=== PATIENT | female | born 1975 | race Caucasian/White ===

== ENCOUNTER 2020-06-24 14:32 | Outpatient (REF) | payer MEDICAID, SELFPAY ==
--- NOTE | ~2020-06-24 | FL_ITS ---
EXAMINATION: XR BARIUM SWALLOW CLINICAL INFORMATION: Other signs and symptoms concerning food and fluid intake COMPARISON: None TECHNIQUE: Fluoroscopic guidance was provided for modified barium swallow performed by the speech and hearing department. The patient received liquid barium and various food media mixed with barium. FINDINGS: No aspiration or penetration is seen with any media. FLUOROSCOPY TIME: 1 minute DOSE AREA PRODUCT: 0.8 Nelson per centimeter squared. Total dose 2.8 mgy FL/FL barium swallow modified IMPRESSION: Unremarkable examination.
--- NOTE | 2020-06-25 11:31 | MHC.SL.IMP ---
Name: Sendy Velasquez Date of : 1975 Age: 45 Date of Registration: 06/24/20 Date of Plan of Treatment: 06/24/20 Onset of Symptoms/Illness: 04/23/19 Date Treatment Started: 06/24/20 Admitting Diagnosis: Fibromyalgia Primary Speech & Language Diagnosis: R13.12 Oropharyngeal Phase Dysphagia Reason for Today's Visit: 87111 Modified Barium Swallow Study Pre-evaluation Dietary Consistencies: Regular Pre-evaluation Liquid Consistency: Thin Pre-evaluation Medication Administration: Whole with Liquid Medical History: Reason for Study: Oropharyngeal Dysphagia Referring Physician: Scott Anderson M.D. Evaluating Clinician: Monica Noriega M.A. [facility] Study Number: 1 Patient Name: Sendy Velasquez Status: Outpatient, Ambulatory Age: 45 Gender: Female MEDICAL HISTORY: Primary (admitting) Diagnosis: Fibromyalgia Year of Onset or Diagnosis: 2019 Past Medical History: Depression Spasms Current (pre-evaluation) Intake/Diet: Route: PO Diet Grade: Regular Liquid Consistencies: Thin Pre-Study Functional Oral Intake Scale (FOIS): 7- Total oral intake with no restrictions Pain: None reported at time of study Oral Motor Exam Facial Symmetry: Normal for Patient Oral-Facial Facial Miscellaneous Observations: Very slight right droop. Patient reports tightness on right side of face. Mouth Occlusion: Normal Oral-Facial Teeth Characteristics: Intact/Normal Oral-Facial Teeth Miscellaneous Observation: Top and bottom natural dentition in good condition. Oral-Facial Lip Pucker Description: Normal Oral-Facial Smile (Lips) Description: Droops Right Oral-Facial Puff Cheeks Description: Normal Oral-Facial Lip Miscellaneous Comment: Patient displayed symmetry at rest, with cheek puffing, and lip pucker. Tongue Size: Normal Tongue Frenum Length: Normal Tongue Excursion Description: Normal Tongue Range of Movement Description: Normal Tongue Speed of Movement Description: Reduced Tongue Strength of Movement (against opposing pressure): Normal Tongue Movement Characteristics: Normal/Absent Tongue Movement Miscellaneous Observation: Slow lateral tongue movements. ROM and strength WFL. Is patient able to manage secretions?: Yes Is patient able to produce volitional cough?: Yes Food and Liquid Trials: Oral Impairment: Lip Closure: 0=No labial escape Oral Impairment: Tongue Control During Bolus Hold: 0=Cohesive bolus between tongue to palatal seal Oral Impairment: Bolus Preparation/Mastication: 0=Timely and efficient chewing and mashing Oral Impairment: Bolus Transport/Lingual Motion: 0=Brisk tongue motion Oral Impairment: Oral Residue: 1=Trace residue lining oral structures Oral Impairment:Initiation of Pharyngeal Swallow: 0=Bolus head at posterior angle of ramus (first hyoid excursion) Pharyngeal Impairment: Soft Palate Elevation: 0=No bolus between soft palate (SP)/pharyngeal wall (PW) Pharyngeal Impairment: Larngeal Elevation: 1=Partial thyroid cartilage/arytenoids to epiglottic petiole movement Pharyngeal Impairment: Anterior Hyoid Excursion: 0=Complete anterior movement Pharyngeal Impairment: Epiglottic Movement: 0=Complete inversion Pharyngeal Impairment: Laryngeal Vestibular Closure:: 0=Complete: no air/contrast in laryngeal vestibule Pharyngeal Impairment: Pharyngeal Stripping Wave: 0=Present: complete Pharyngeal Impairment: Pharyngeal Contraction: Did not test Pharyngeal Impairment: Pharyngoesophageal Segment Openin=Complete distension and complete duration: no obstruction of flow Pharyngeal Impairment: Tongue Base (TB) Retraction: 1=Trace column of contrast/air between TB and posterior PW Pharyngeal Impairment: Pharyngeal Residue: 0=Complete pharyngeal clearance Pharyngeal Impairment: Espohogeal Clearance Upright Position: Did not test Impressions and Recommendations OBJECTIVE: Time-out: performed at 02:45 Evaluation Start: 02:30; Stop: 02:40 Patient Positioning: Standing Viewing Planes: LATERAL ONLY Contrast: MBSImP? Standardized Protocol using commercially prepared, standardized Barium viscosities, including: Varibar? THIN LIQUID (40% w/v, <15 cps) , 1/2 Shortbread Cookie (1 x1 x.25 ) MBSImP ID: [id number] MBSImP Results: Lip closure for intraoral bolus containment resulted in no labial escape. Tongue control during bolus hold maintained a cohesive bolus held between tongue to palate seal. Bolus preparation and mastication resulted in timely and efficient chewing and mashing. Bolus transport/lingual motion was with brisk tongue motion. Oral residue was a trace, lining oral structures. Initiation of the pharyngeal swallow occurred as the bolus head reached the posterior angle of the mandibular ramus. Soft palate elevation resulted in no bolus between the soft palate and the pharyngeal wall. Laryngeal elevation was decreased, with partial superior movement of the thyroid cartilage/partial approximation of the arytenoids to the epiglottic petiole. Anterior hyoid excursion demonstrated complete anterior movement. Epiglottic movement resulted in complete inversion. Laryngeal vestibular closure was complete, as indicated by no air or contrast within the laryngeal vestibule at the height of the swallow. Pharyngeal stripping wave was present and complete. Pharyngeal contraction could not be determined due to logistical reasons not related to physiologic impairment. Pharyngoesophageal segment opening was completely distended for complete duration with no obstruction of bolus flow. Tongue base retraction allowed a trace column of contrast or air between the retracted tongue base and the posterior pharyngeal wall. Pharyngeal residue was not present. There was complete pharyngeal clearance. Esophageal clearance in the upright position could not be assessed due to logistical reasons not related to physiologic impairment. Oral Impairment Score: 0 Pharyngeal Impairment Score: 1 (absence of score, component 13) Esophageal Impairment Score: --- (absence of score, component 17) Laryngeal Penetration and Aspiration: Neither penetration nor aspiration was observed in today's study with Cookie, Thin. ASSESSMENT: Clinician Assessment: This exam was conducted by radiologist and speech-language pathologist, with patient standing for lateral view. Patient trialled the following liquid and solid consistencies: -5 mL thin liquid barium -straw sip thin liquid barium -pureed solid (applesauce mixed with barium paste) -ground solid (chicken salad mixed with barium paste) -hard regular solid (Liz Doone cookie coated in barium paste) Patient was able to feed herself without difficulty. Timely chewing resulting in complete recollection of bolus. AP transport of bolus was WFL. Trace oral residue subsequently cleared. One instance of trace posterior escape of bolus before swallow trigger when drinking thin liquid from a straw. Contrast collected in valleculae and subsequently cleared. Patient formed cohesive bolus with no posterior escape with bolus hold. Partial laryngeal elevation with complete anterior hyoid movement and complete epiglottic inversion. Complete distention through PES. Complete pharyngeal clearance. No aspiration or penetration evident during this exam. Exam was unremarkable. Liquid Intake Recommendation: Thin Liquid Intake Strategies: Unrestricted Dietary Recommendations: Regular Medication Administration: Whole with Liquid Compensatory Strategies Recommended: Sitting Upright (90 deg) Small Bites and Sips Alternate Liquids/Solids Rate of Ingestion Change Supervision during eating and or drinking: None Needed Recommendation for Speech Therapy: NA:Typical Evaluation PLAN: Intake Recommendations: Route: PO Diet Grade: Regular Liquid Consistencies: Thin Post-Study Functional Oral Intake Scale (FOIS): 7- Total oral intake with no restrictions Patient displayed unremarkable oral phase during this exam. However, patient reports difficulty eating tough foods such as certain meats. Recommend patient cut meat into small bite size pieces and moisten/soften with sauce/gravy as needed. Recommend alternate bite of food, with sip of liquid. Recommend referral to physical therapy for motoric impairments related to diagnosis of fibromyalgia. Recommend consult with neurologist if patient does not have one already for management of fibromyalgia. Recommend consult with speech pathology for speech-language evaluation due to patient?s concerns regarding communication. [employer] Clinican/Clinical Fellow: No Supervisory Statement: N/A Speech Language Pathologist: Monica Noriega M.A., [facility]
== END 2020-06-24 14:33 | disposition home or self-care (01) ==
LOC: HO.XRAY 14:32
PROVIDERS: Visit Provider Internal Medicine
DX: R63.8 Other symptoms and signs concerning food and fluid intake (principal)
CPT/HCPCS: 74230; 92611

== ENCOUNTER 2020-09-17 13:30 | Outpatient (REF) | payer MEDICAID, SELFPAY ==
--- NOTE | ~2020-09-17 | MR_ITS ---
EXAMINATION: MR BRAIN WITHOUT AND WITH CONTRAST CLINICAL INFORMATION: Generalized weakness. Slurred speech. COMPARISON: None available. TECHNIQUE: MRI of the brain was obtained using routine sequences without and following the administration of 5.5 mL of Gadavist intravenous contrast. FINDINGS: No focal restricted diffusion is demonstrated to suggest acute or subacute cerebral ischemia. No evidence of acute or chronic hemorrhagic products on heme-sensitive imaging. Normal parenchymal signal characteristics. The ventricles are normal in morphology and size. No abnormal mass effect. No midline shift. Normal appearance of the pituitary gland. No abnormalities of the posterior fossa with normal appearance of the brainstem and cerebellum. Normal arterial and venous vascular flow voids are present. No abnormal contrast enhancement. Normal, homogeneous marrow signal. Mild mucosal thickening of the paranasal sinuses. No signal abnormalities within the mastoids. MR/MR head/brain wo/w con IMPRESSION: 1. No acute intracranial abnormalities. No abnormal intracranial enhancement. 2. No MRI abnormalities to explain the patient's symptoms.
== END 2020-09-17 13:31 | disposition home or self-care (01) ==
LOC: HO.MRI 13:30
PROVIDERS: Visit Provider Internal Medicine
DX: R47.81 Slurred speech (principal)
CPT/HCPCS: 70553; A9585

== ENCOUNTER 2020-12-12 08:15 | Emergency (ER) | payer MEDICAID, SELFPAY ==
--- NOTE | ~2020-12-12 | XR_ITS ---
EXAMINATION: XR ANKLE, LEFT CLINICAL INFORMATION: Left ankle pain. COMPARISON: None TECHNIQUE: AP, lateral, and mortise views of the left ankle. FINDINGS: There is mild bimalleolar soft tissue swelling. No visible acute fracture, dislocation or lytic process seen. The ankle mortise and subtalar joints are normal. There is a tiny calcaneal heel enthesophyte. XR/XR ankle LT 2V IMPRESSION: Tiny calcaneal heel enthesophyte. Bimalleolar minimal soft tissue swelling but no visible fracture or dislocation.
[2020-12-12 08:46] VITALS: BP 107/74; PULSE 66; RESP 14; TEMP 36.6; O2SAT 99; BMI 21.9
--- NOTE | 2020-12-12 09:24 | ED_ITS ---
HPI - Extremity Problem General Chief complaint: Extremity Injury, Lower Stated complaint: leg swelling Time Seen by Provider: 12/12/20 09:20 Source: patient Mode of arrival: ambulatory Limitations: no limitations History of Present Illness HPI Narrative: Patient comes emergency room complaining of left ankle swelling. Patient states 2 days ago she was walking in 6 [place], she was walking in the sidewalk, her ankle slipped, and sprained her ankle. Patient states that she has been able to bear weight, but walks limping. Related Data Previous Rx's Medication Instructions Recorded cyclobenzaprine 5 mg tablet 5 mg PO TID PRN #7 tab 12/12/20 diclofenac sodium 1 % topical gel 2 g TOPICAL QID #100 g 12/12/20 (Voltaren Arthritis Pain) Allergies Allergy/AdvReac Type Severity Reaction Status Date / Time No Known Allergies Allergy Unverified 01/18/20 18:42 [No Known Allergies*] shrimp Allergy Unknown rash, hives Uncoded 09/26/13 00:00 Review of Systems Review of Systems: Constitutional : No Weight loss, No Fever, No Chills, No Night Sweats, No Fatigue, No Malaise ENT/Mouth : No Hearing loss, No Ear Pain, No Nasal Congestion, No Sinus Pain, No Hoarseness, No sore throat, No Rhinorrhea, No Swallowing Difficulty Eyes: No Eye Pain, No Swelling, No Redness, No Foreign Body, No Discharge, No Vision Changes Cardiovascular : No Chest Pain, No SOB, No Dyspnea on Exertion, No Orthopnea, No Edema, No Palpitations Respiratory : No Cough, No Sputum, No Wheezing, No Smoke Exposure, No Dyspnea Gastrointestinal : No Nausea, No Vomiting, No Diarrhea, No Constipation, No abdominal Pain, No Hematochezia, No Melena Genitourinary : no irregular bleeding, No Dysuria, No Urinary Frequency, No Hematuria, No Urinary Incontinence, No Urgency, No Flank Pain, No Urinary Flow Changes, No Hesitancy Musculoskeletal : Complaining of left ankle pain, No Myalgias, No Joint Swelling Skin : No Skin Lesions, No rash Neuro : No Weakness, No Numbness, No Paresthesias, No Loss of Consciousness, No Dizziness, No Headache Psych : No Anxiety/Panic, No Depression, No SI/HI/AH/VH, No Social Issues, Heme/Lymph: No Bruising, No Bleeding,No Lymphadenopathy Endocrine : No Polyuria, No Polydipsia, No Temperature Intolerance [facility] Social History Social History Advance Directives: No Advance Directives Information Provided: Yes Patient : No Physical Exam Vital Signs: Vital Signs: Last Vital Signs Temp 97.9 F 12/12/20 08:46 Pulse 66 12/12/20 08:46 Resp 14 12/12/20 08:46 BP 107/74 12/12/20 08:46 Pulse Ox 99 12/12/20 08:46 Body Mass Index 21.9 Const: Other: Appearance: Alert. Oriented X3. No acute distress. Eyes: Pupils equal, round and reactive to light. ENT: Pharynx normal. Neck: Normal inspection. Neck supple. No lymph nodes noted. No crepitus CVS: Normal heart rate and rhythm. Pulses normal. Normal S1 and S2 Respiratory: No respiratory distress. Breath sounds normal. No Wheezing. No rales Abdomen: Soft and nontender. No rigidity. No distention. good BS x4 Skin: Skin warm and dry. Normal skin color. Normal skin turgor. Extremities: No lower extremity edema. Mild swelling in lateral malleolus, moderate pain to palpation the lateral side, no discomfort on the medial aspect. No gross deformity Neuro: Oriented X 3. No motor deficit. No sensory deficit. Moving all extermities. No slurred speech. Course Course Course Narrative: I discussed the x-ray with the patient, no acute fracture. I offered to the patient crutches, she does not want them. MDM - Extremity (Nontraumatic) Imaging Data Left ankle x-ray: Radiologist's impression: There is mild bimalleolar soft tissue swelling. No visible acute fracture, dislocation or lytic process seen. The ankle mortise and subtalar joints are normal. There is a tiny calcaneal heel enthesophyte.? XR/XR ankle LT 2V IMPRESSION: Tiny calcaneal heel enthesophyte. ? Bimalleolar minimal soft tissue swelling but no visible fracture or dislocation. Discharge Plan Discharge Clinical Impression: Ankle sprain and strain Patient Disposition: Home, Self-Care Instructions: Ankle Sprain (ED) Additional Instructions: Please follow-up with your primary care physician tomorrow. If you have any worsening or new symptoms, please return to the emergency room or call 911 Prescriptions: New cyclobenzaprine 5 mg tablet 5 mg PO TID PRN (Reason: muscle spasm) Qty: 7 RF: 0 diclofenac sodium [Voltaren Arthritis Pain] 1 % gel 2 g topical QID Qty: 100 RF: 0
== END 2020-12-12 09:42 | disposition home or self-care (01) ==
PROVIDERS: Emergency Provider Emergency Medicine
DX: S93.402A Sprain of unspecified ligament of left ankle, initial encounter (principal); S96.912A Strain of unspecified muscle and tendon at ankle and foot level, left foot, initial encounter; X50.1XXA Overexertion from prolonged static or awkward postures, initial encounter; Y93.01 Activity, walking, marching and hiking; Y92.831 Amusement park as the place of occurrence of the external cause; Y99.9 Unspecified external cause status
CPT/HCPCS: 73600; 99283

== ENCOUNTER 2021-01-08 18:38 | Emergency (ER) | payer OTHER, MEDICAID, SELFPAY ==
[2021-01-08 19:06] VITALS: BP 116/79; PULSE 77; RESP 18; TEMP 36.3; O2SAT 98; BMI 26.0
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
== END 2021-01-08 20:56 | disposition home or self-care (01) ==
PROVIDERS: Emergency Provider Emergency Medicine Emergency Medical Services
DX: S09.90XA Unspecified injury of head, initial encounter (principal); S00.83XA Contusion of other part of head, initial encounter; S16.1XXA Strain of muscle, fascia and tendon at neck level, initial encounter; S39.012A Strain of muscle, fascia and tendon of lower back, initial encounter; V53.5XXA Driver of pick-up truck or van injured in collision with car, pick-up truck or van in traffic accident, initial encounter; Y93.9 Activity, unspecified; Y92.410 Unspecified street and highway as the place of occurrence of the external cause; Y99.9 Unspecified external cause status; Z79.899 Other long term (current) drug therapy
CPT/HCPCS: 99283

== ENCOUNTER 2021-05-20 17:28 | Emergency (ER) | payer MEDICAID, SELFPAY ==
--- NOTE | ~2021-05-20 | XR_ITS ---
EXAMINATION: XR LUMBOSACRAL SPINE CLINICAL INFORMATION: Low back pain COMPARISON: None TECHNIQUE: Three views of the lumbosacral spine. FINDINGS: The vertebral bodies and posterior elements are normal. The disc spaces are preserved and the vertebral alignment is normal. The paraspinal soft tissues are normal. Gas and stool present throughout the colon. No dilated small bowel is seen. XR/XR lumbar spine 2-3V IMPRESSION: Unremarkable examination.
[2021-05-20 17:52] VITALS: BP 118/81; PULSE 75; RESP 18; TEMP 37.2; O2SAT 99; BMI 26.0
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
[2021-05-20 19:01] LABS: UPreg QC Valid YES; Urine Pregnancy NEGATIVE (NEGATIVE)
[2021-05-20] MEDS: Ketorolac Tromethamine 60 MG/2 ML VIAL IM (19:07)
[2021-05-20 19:44] VITALS: BP 117/73; PULSE 54; RESP 16; TEMP 36.7
== END 2021-05-20 20:30 | disposition home or self-care (01) ==
PROVIDERS: Nurse Practitioner Family; Emergency Provider Emergency Medicine
DX: Z04.1 Encounter for examination and observation following transport accident (principal); M54.42 Lumbago with sciatica, left side
CPT/HCPCS: 72100; 81025; 96372; 99284; J1885